=== PATIENT | male | born 1960 | race Caucasian/White ===

== ENCOUNTER 2018-03-27 15:20 | Outpatient (CLI) | payer OTHER ==
--- NOTE | 2018-03-27 16:03 | RAD ---
LEFT SECOND TOE THREE VIEWS: 03/27/2018 HISTORY: Injury of toe on left foot. The patient injured the left second toe six weeks ago and now continues to have toe pain and swelling. FINDINGS: There is an avulsion fracture involving the dorsal aspect base of the distal phalanx of the left seco nd toe. No additional fracture or dislocation is seen. IMPRESSION: Avulsion fracture base of the distal phalanx left second toe. POS: ANYA
== END 2018-03-27 15:21 | disposition home or self-care (01) ==
LOC: SCSRAD 15:20
PROVIDERS: ATTEND Family Medicine
DX: S92.532A Displaced fracture of distal phalanx of left lesser toe(s), initial encounter for closed fracture (principal)